=== PATIENT | male | born 1985 | race Caucasian/White ===

== ENCOUNTER → 2017-12-08 | Outpatient (CLI) | payer BC ==
--- NOTE | 2017-12-08 09:56 | XR ---
EXAMINATION TYPE: XR chest 2V DATE OF EXAM: 12/08/2017 COMPARISON: NONE HISTORY: Cough TECHNIQUE: Frontal and lateral views of the chest are obtained. FINDINGS: There is no focal air space opacity, pleural effusion, or pneumothorax seen. The cardiac silhouette size is within normal limits. The osseous structures are intact. IMPRESSION: No acute cardiopulmonary process.
== END | disposition home or self-care (01) ==
LOC: RADXRYALE 09:31
PROVIDERS: ATTEND Physician Assistant
DX: J18.0 Bronchopneumonia, unspecified organism (principal)
CPT/HCPCS: 71046

== ENCOUNTER 2018-05-16 20:03 | Emergency (ER) | payer BC ==
[2018-05-16 20:15] VITALS: BP 135/82; PULSE 83; RESP 16; TEMP 97.8
--- NOTE | 2018-05-16 22:12 | XR ---
EXAMINATION TYPE: XR shoulder complete RT DATE OF EXAM: 05/16/2018 COMPARISON: NONE HISTORY: Shoulder pain TECHNIQUE: 3 views FINDINGS: There is a small linear calcification at the greater tuberosity. I see no fracture nor disl ocation. Glenohumeral joint is anatomic. IMPRESSION: Calcific tendinitis. No fracture seen.
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
== END 2018-05-16 23:08 | disposition home or self-care (01) ==
LOC: EC 20:03
DX: M75.31 Calcific tendinitis of right shoulder (principal); F17.200 Nicotine dependence, unspecified, uncomplicated; Z79.899 Other long term (current) drug therapy
CPT/HCPCS: 99283

== ENCOUNTER 2021-04-17 16:57 | Emergency (ER) | payer BC ==
[2021-04-17] MEDS ORDERED: ASPIRIN 81 MG PO STA (17:44)
[2021-04-17] MEDS ORDERED: SODIUM CHLORIDE 0.9% 1,000 ML IV STA (17:44)
[2021-04-17] MEDS ORDERED: ALPRAZolam 0.25 MG TAB PO STA (17:45)
--- NOTE | 2021-04-17 17:54 | ED ---
Chest Pain HPI - General Chief Complaint: Chest Pain Stated Complaint: Chest pain, SOB Source: patient, RN notes reviewed, old records reviewed Mode of arrival: ambulatory - History of Present Illness Initial Comments: 36-year-old white male, alert and oriented 4, presents to the emergency room with chest tightness and shortness of breath since 11:00. 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 Patient states that he stopped at a gas station and had to sit down because he felt diaphoretic. Patient states that it resolved and he called his friend who is a batch plant operator who told him that he probably had a panic attack. But that he should come and get checked out. Patient denies any medical history he is a half a pack a day smoker. He does drink 5-6 beers a day. He does not have any nausea vomiting diarrhea or fever. He denies cough. No leg pain or swelling. He does state that he has increased stress and anxiety and "a lot on my plate". Patient's oxygen level is 100% on room air heart rate of 91. 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) Pain Location: left chest Pain Radiation: none Severity scale (1-10): 6 Quality: tightness Consistency: constant Improves With: rest Worsens With: nothing Context: other (Increased stress) Anginal Symptoms: nausea Treatments Prior to Arrival: none - Related Data On Oral Contraceptives: No Home Medications Medication Instructions Recorded Confirmed HYDROcodone/APAP 10-325MG [[place] 0.5 - 1 tab PO TID PRN 04/17/21 04/17/21 10-325] Allergies Allergy/AdvReac Type Severity Reaction Status Date / Time No Known Allergies Allergy Verified 04/17/21 18:39 Review of Systems ROS Statement: Those systems with pertinent positive or pertinent negative responses have been documented in the HPI. ROS Other: All systems not noted in ROS Statement are negative. EKG Findings - EKG Results: EKG: sinus rhythm (Ventricular rate of 80, ID interval of 0.150, QRS of 0.90, QTC is 0.415; normal sinus rhythm ) Past Medical History Past Medical History: No Reported History History of Any Multi-Drug Resistant Organisms: None Reported Past Surgical History: Hernia Repair Past Psychological History: No Psychological Hx Reported Smoking Status: Current every day smoker Past Alcohol Use History: Daily Past Drug Use History: None Reported General Exam General appearance: alert, in no apparent distress, anxious Head exam: Present: atraumatic, normocephalic, normal inspection Eye exam: Present: normal appearance, PERRL, EOMI. Absent: scleral icterus, conjunctival injection, periorbital swelling Pupils: Present: normal accommodation ENT exam: Present: normal exam, normal oropharynx, mucous membranes moist Neck exam: Present: normal inspection, full ROM. Absent: tenderness, meningismus, lymphadenopathy, thyromegaly Respiratory exam: Present: normal lung sounds bilaterally. Absent: respiratory distress, wheezes, rales, rhonchi, stridor, chest wall tenderness, accessory muscle use, decreased breath sounds, prolonged expiratory Cardiovascular Exam: Present: regular rate, normal rhythm, normal heart sounds. Absent: systolic murmur, diastolic murmur, rubs, gallop, clicks, JVD GI/Abdominal exam: Present: soft, normal bowel sounds. Absent: distended, tenderness, guarding, rebound, rigid, mass Extremities exam: Present: normal inspection, full ROM, normal capillary refill. Absent: tenderness, pedal edema, joint swelling, calf tenderness Back exam: Present: normal inspection, full ROM, vertebral tenderness. Absent: tenderness, CVA tenderness (R), CVA tenderness (L), muscle spasm, paraspinal tenderness, rash noted Neurological exam: Present: alert, oriented X3, CN II-XII intact, normal gait Expanded Patient oriented to: Present: person, place, time Speech: Present: fluid speech Cranial nerves: EOM's Intact: Normal, Gag Reflex: Normal, Tongue Deviation: Normal, Nystagmus: Normal, Facial Sensation: Normal Cerebellar function: Finger to Nose: Normal, Heel to Corrigan: Normal, Romberg: Normal Upper motor neuron: Reed Neglect: Normal, Pronator Drift: Normal Motor strength exam: RUE: 5, LUE: 5, RLE: 5, LLE: 5 Eye Response: (4) open spontaneously Motor Response: (6) obeys commands Verbal Response: (5) oriented Mj Total: 15 Psychiatric exam: Present: normal affect, normal mood, anxious. Absent: agitated Skin exam: Present: warm, dry, intact, normal color. Absent: rash, cyanosis, diaphoretic, erythema, urticaria, petechiae, pallor, mottled Course Vital Signs 04/17/21 04/17/21 17:05 18:42 Temperature 98.4 F 99.0 F Pulse Rate 91 76 Respiratory 16 18 Rate Blood Pressure 163/84 146/91 O2 Sat by Pulse 100 99 Oximetry Chest Pain MDM - MDM Chest x-ray shows no acute cardiopulmonary process, osseous structures are intact and there is no pleural effusion or pneumothorax seen. Hemoglobin and hematocrit is stable at 15 and 43 respectively, d-dimer is negative at 0.22, glucose is 106, magnesium 1.9 and potassium is 4.0. EKG shows normal sinus rhythm with no ST elevation or acute changes. UA shows 1+ ketones and patient was rehydrated with 1 L of normal saline. Patient states that he does feel better after getting the Xanax. He will be directed to follow up with the primary care doctor and return if any worsening symptoms of chest pain, shortness of breath, fever or nausea vomiting. Case discussed with Dr. Cyr was agreeable to this plan of care Disposition Clinical Impression: Chest pain, Anxiety, Stress Disposition: HOME SELF-CARE Condition: Fair Instructions (If sedation given, give patient instructions): Chest Pain (ED), Anxiety (ED) Additional Instructions: Follow-up with the primary care doctor has referred, return to the emergency room with worsening chest pain or shortness of breath. Increase your fluid intake. Continue to work and decreasing your smoking. Is patient prescribed a controlled substance at d/c from ED?: No Referrals: None,Stated [Primary Care Provider] - 1-2 days Edwige Morillo MD [STAFF PHYSICIAN] - 1-2 days Time of Disposition: 19:20
[2021-04-17 18:02] LABS: Basophils # (A) 0.1 k/uL (0-0.2); Basophils % (A) 1 %; Eosinophils # (A) 0.1 k/uL (0-0.7); Eosinophils % (A) 2 %; HCT 43.1 % (39.0-53.0); Lymphocytes # (A) 2.1 k/uL (1.0-4.8); Lymphocytes % (A) 23 %; MCHC 34.8 g/dL (31.0-37.0); MCV 91.8 fL (80.0-100.0); Mean Platelet Volume 7.3; Monocytes # (A) 0.7 k/uL (0-1.0); Monocytes % (A) 7 %; Neutrophils % (A) 66 %; Platelet Count 213 k/uL (150-450); RDW 12.9 % (11.5-15.5); WBC 9.1 k/uL (3.8-10.6)
[2021-04-17 18:11] LABS: ALT 26 U/L (4-49); AST 48 U/L (17-59); African American GFR (CKD) >90 (>60 ml/min/1.73 sqM); Albumin 4.9 g/dL (3.5-5.0); Alkaline Phosphatase 87 U/L (38-126); Amylase 71 U/L (30-110); Anion Gap 12 mmol/L; Blood Urea Nitrogen 16 mg/dL (9-20); Calcium 9.6 mg/dL (8.4-10.2); Carbon Dioxide 25 mmol/L (22-30); Chloride 100 mmol/L (98-107); Glucose 106 mg/dL (74-99); Lipase 91 U/L (23-300); Magnesium 1.9 mg/dL (1.6-2.3); Non-African American GFR(CKD) >90 (>60 ml/min/1.73 sqM); Sodium 137 mmol/L (137-145); Total Protein 7.8 g/dL (6.3-8.2)
--- NOTE | 2021-04-17 18:13 | XR ---
EXAMINATION TYPE: XR chest 2V DATE OF EXAM: 04/17/2021 COMPARISON: Chest x-ray December 08, 2017 HISTORY: Chest pain and shortness of breath. TECHNIQUE: Frontal and lateral views of the chest are obtained. FINDINGS: There is no focal air space opacity, pleural effusion, or pneumothorax seen. The cardiac silhouette size is within normal limits. The osseous structures are intact. Overlying EKG leads are in current study. IMPRESSION: No acute cardiopulmonary process. No significant change from prior.
[2021-04-17 18:17] LABS: D-Dimer 0.22 mg/L FEU (<0.60); INR 0.9 (<1.2); Partial Thromboplastin Time 28.9 sec (22.0-30.0); Prothrombin Time 9.8 sec (9.0-12.0)
[2021-04-17 18:43] VITALS: BP 146/91; PULSE 76; RESP 18; TEMP 99
[2021-04-17 19:08] LABS: Appearance,Urine Clear (Clear); Bilirubin,Urine Negative (Negative); Blood,Urine Negative (Negative); Color,Urine Yellow; Glucose,Urine (UA) Negative (Negative); Ketones,Urine 1+ (Negative); Leukocyte Esterase,Urine Negative (Negative); Nitrite,Urine Negative (Negative); PH, Urine 6.5 (5.0-8.0); Protein,Urine Negative (Negative); Urobilinogen,Urine <2.0 mg/dL (<2.0)
== END 2021-04-17 19:33 | disposition home or self-care (01) ==
LOC: EC 16:57
DX: R07.89 Other chest pain (principal); F17.200 Nicotine dependence, unspecified, uncomplicated; F41.9 Anxiety disorder, unspecified
CPT/HCPCS: 36415; 71046; 80053; 81003; 82150; 83690; 83735; 84484; 85025; 85379; 85610; 85730; 93005; 96360; 99285

== ENCOUNTER 2023-08-27 13:15 | Emergency (ER) | payer SELFPAY ==
[2023-08-27 13:36] VITALS: BP 150/89; PULSE 111; RESP 20; TEMP 96.8
[2023-08-27 14:00] LABS: Amphetamine Screen,Urine Not Detected (NotDetected); Barbiturate Screen,Urine Not Detected (NotDetected); Benzodiazepines Screen,Urine Not Detected (NotDetected); Cocaine Screen,Urine Not Detected (NotDetected); Methadone Screen, Urine Not Detected (NotDetected); Opiate Screen,Urine Not Detected (NotDetected); Oxycodone Screen, Urine Not Detected (NotDetected); Phencyclidine Screen,Urine Not Detected (NotDetected); Tricyclic Antidepressant,Urine Not Detected (NotDetected); Urn Cannabinoid Scrn Not Detected (NotDetected)
== END 2023-08-27 15:28 | disposition left against medical advice (07) ==
LOC: EC 13:15
DX: Z53.21 Procedure and treatment not carried out due to patient leaving prior to being seen by health care provider (principal); F99 Mental disorder, not otherwise specified
CPT/HCPCS: 80306; 99499